=== PATIENT | female | born 1935 | race Asian ===

== ENCOUNTER 2016-09-26 19:57 | Emergency (ER) | payer MEDICARE, OTHER ==
[~2016-09-26 19:57] MED LIST: ALPR0.25 PO; ASCO500C PO; B COTAB3 PO; BIOT2500 PO; CYAN25003 PO; D32000CA PO; DICL1GEL TOP; FISH100020 PO; FURO20 PO; HYOS0.1251 PO; LYRI50CA2 PO; MECL25CH PO; MEMA28CA PO; PHEN100 PO; POTA-267 PO; REST0.05 OU; TAB-TAB PO; TACT325T; VIIB40TA PO; [UNRECOGNIZED DRUG - CODE] TOP
[2016-09-26] MEDS ORDERED: PROG100C PO (20:10)
[2016-09-26 20:11] VITALS: BP 112/63; PULSE 62; RESP 18; TEMP 98.9; O2SAT 91
--- NOTE | 2016-09-26 20:15 | PD ---
HPI . Head injury Chief Complaint: Fall Time Seen by Provider: 20:10 Travel History International Travel<30 days: No Contact w/Intl Traveler<30days: No History of Present Illness HPI detention patient with Alzheimer's who was sent to us for evaluation of injury sustained in a fall. She reportedly was bending over and fell over. There was no associated loss of consciousness. They state that her neurological status is the same now as it was prior to the incident. She is not on a blood thinner. PFSH Past Medical History Hx Anticoagulant Therapy: No ADHD: Yes Alzheimer's Disease: Yes Arthritis: Yes (HANDS) Asthma: No Blood Disorders: No Anxiety: Yes Depression: Yes Heart Rhythm Problems: Yes (bradycardia) Cancer: No Cardiovascular Problems: Yes High Cholesterol: No Chest Pain: No Congestive Heart Failure: No COPD: Yes Cerebrovascular Accident: No Dementia: Yes (Alzheimer's) Diabetes: No Diminished Hearing: No Deep Vein Thrombosis: Yes (PE x 2) Endocrine: No Gastrointestinal Disorders: Yes GERD: Yes Glaucoma: No Genitourinary: No Headaches: Yes Hepatitis: Yes (B) Hiatal Hernia: No Hypertension: No Immune Disorder: No Implanted Vascular Access Dvce: Yes Neurologic: Yes (alzheimer/dementia) Psychiatric: Yes Reproductive: No Respiratory: Yes Immunizations Current: Yes Migraines: Yes Seizures: Yes Sleep Apnea: Yes Thyroid Disease: No Ulcer: No Menopausal: Yes : 1 Para: 1 Past Surgical History Abdominal Surgery: Yes (hysterectomy) Body Medical Devices: vena cava filter 2012 Eye Surgery: Yes (CATARACT SURGERY 2008) Genitourinary Surgery: Yes (BOTOX IN BLADDER) Gynecologic Surgery: Yes Hysterectomy: Yes Mastectomy: Yes (BILATERAL-r/t nonmalignant deformities caused by leaking silicone) Neurologic Surgery: Yes (neck 2007, brain bleed) Oral Surgery: No Pacemaker: No Thoracic Surgery: Yes Other Surgery: Yes (IVC filter 02/08, Bilat masectomy 1995) Social History Alcohol Use: No Tobacco Use: No (Quit approx 15-20 yrs ago smoked cigs) Substance Use: No Allergies-Medications (Allergen,Severity, Reaction): Coded Allergies: Codeine (Verified Allergy, Unknown, 09/26/16) Fiorinal (Verified Allergy, Unknown, 09/26/16) Aspirin (Verified Adverse Reaction, Intermediate, stomach upset, 09/26/16) Reported Meds & Prescriptions Reported Meds & Active Scripts Active Reported Acyclovir Topical (Acyclovir) 5% Oint 1 Applic TOPICAL Q3HR Viibryd (Vilazodone) 40 Mg Tab 40 Mg PO DAILY Risperidone 1 Mg Tab 1 Mg PO Q12HR Potassium Chloride ER (Potassium Chloride) 20 Meq Tab 20 Meq PO BID Phenytoin Extended 200 Mg Cap 200 Mg PO BID Meclizine (Meclizine HCl) 12.5 Mg Tab 12.5 Mg PO TID PRN Gabapentin 400 Mg Cap 400 Cap PO HS Gabapentin 100 Mg Cap 200 Mg PO TID Furosemide 40 Mg Tab 40 Mg PO DAILY Duloxetine DR (Duloxetine HCl) 20 Mg Capdr 20 Mg PO DAILY Tyyqhdjbyn-Jqaqetxhcvfts-Ljnmzxjc 50-300-40 Mg Cap 1 Cap PO Q6HR PRN Do not exceed 6 capsules/day. B Complex (B-Complex Vitamins) 1 Cap 1 Cap PO DAILY Progesterone Micronized 100 Mg Cap 100 Mg PO DAILY Review of Systems ROS Limitations: Other: (dementia) Physical Exam Narrative GENERAL: Patient is lying on the stretcher with her eyes closed in no acute distress. She will open her eyes and look around but otherwise will not follow commands. SKIN: Warm and dry. HEAD: Normocephalic. She has a palpable contusion to the occiput of her head. EYES: Pupils equal and round. Extraocular movements are intact. ENT: No nasal bleeding or discharge. Mucous membranes pink and moist. NECK: Trachea midline. She is C-spine immobilized. CARDIOVASCULAR: Regular rate and rhythm. RESPIRATORY: No accessory muscle use. GASTROINTESTINAL: Abdomen soft, non-tender, nondistended. MUSCULOSKELETAL: No obvious deformities. No edema. NEUROLOGICAL: Awake and alert. No obvious cranial nerve deficits. Motor grossly within normal limits. Normal speech. PSYCHIATRIC: Appropriate mood and affect; insight and judgment normal. Data Data Last Documented VS Vital Signs Date Time Temp Pulse Resp B/P Pulse Ox O2 Delivery O2 Flow Rate FiO2 09/26/16 21:24 56 18 110/69 97 Nasal Cannula 2 09/26/16 20:[address] Brain W/O Iv Contrast(Rout) (09/26/16 20:10) Ct Cerv Spine W/O Contrast (09/26/16 20:10) MDM Medical Decision Making Medical Screen Exam Complete: Yes Emergency Medical Condition: Yes Differential Diagnosis My differential diagnosis of head trauma includes but is not limited to scalp contusion, concussion, intracerebral hemorrhage. Narrative Course This is a demented patient who presents for evaluation of an injury to her head. CT of her head and neck are negative for acute finding. Diagnosis Primary Impression: Scalp contusion Disposition: 01 DISCHARGE HOME Condition: Stable Yuridia Mcgee MD Sep 26, 2016 20:15
[2016-09-26] MEDS ORDERED: DULO1CAP PO (20:36)
[2016-09-26] MEDS ORDERED: MECL12.574 PO (20:36)
[2016-09-26] MEDS ORDERED: ACYC5OIN4 TOPICAL (20:36)
[2016-09-26] MEDS ORDERED: BUTA1CAP5 PO (20:36)
[2016-09-26] MEDS ORDERED: GABA100C4 PO (20:36)
[2016-09-26] MEDS ORDERED: POTA-163 PO (20:36)
[2016-09-26] MEDS ORDERED: FURO40TA PO (20:36)
[2016-09-26] MEDS ORDERED: VITACAP7 PO (20:36)
[2016-09-26] MEDS ORDERED: PHEN200C3 PO (20:36)
[2016-09-26] MEDS ORDERED: GABA400C5 PO (20:36)
[2016-09-26] MEDS ORDERED: RISP1TAB2 PO (20:36)
[2016-09-26] MEDS ORDERED: VIIB40TA PO (20:36)
[2016-09-26 21:24] VITALS: BP 110/69; PULSE 56; RESP 18; O2SAT 97
--- NOTE | 2016-09-26 21:58 | RADHPO ---
EXAM DATE/TIME: 09/26/2016 20:48 [facility] COMPARISON: CT CERVICAL SPINE W/O CONTRAST, April 18, 2015, 9:51. INDICATIONS : Trauma. Fall. RADIATION DOSE: 26.99 CTDIvol (mGy) MEDICAL HISTORY : Dementia. Congestive heart failure. SURGICAL HISTORY : Fusion, cervical. ENCOUNTER: Initial ACUITY: 1 day PAIN SCALE: 0/10 LOCATION: neck TECHNIQUE: Volumetric scanning of the cervical spine was performed. Multiplanar reconstructions in the sagittal, coronal and oblique axial planes were performed. Using automated exposure control and adjustment o f the mA and/or kV according to patient size, radiation dose was kept as low as reasonably achievable to obtain optimal diagnostic quality images. FINDINGS: Craniocervical and cervical vertebral body alignment remain intact. There is no evidence of acute fracture or traumatic listhesis. Postsurgical changes are seen in the lower cervical spine following anterior cervical fusion from C5- C7. Posterior elements are intact. There are no soft tissue abnormalities. CONCLUSION: Stable cervical spine without evidence of acute fracture or traumatic listhesis. Status post anterior cervical fusion from C5-C7. Dante Vilchis MD on September 26, 2016 at 21:54 Board Certified Radiologist. This report was verified electronically.
--- NOTE | 2016-09-26 22:00 | RADHPO ---
EXAM DATE/TIME: 09/26/2016 20:48 [facility] COMPARISON: CT BRAIN W/O CONTRAST, December 02, 2015, 12:55. INDICATIONS : Trauma. Fall. RADIATION DOSE: 56.66 CTDIvol (mGy) MEDICAL HISTORY : Congestive hearrt failure. Dementia. Brain injury. SURGICAL HISTORY : Fusion, cervical. Craniotomy. ENCOUNTER: Initial ACUITY: 1 day PAIN SCALE: 3/10 LOCATION: cranial TECHNIQUE: Multiple contiguous axial images were obtained of the head. Using automated exposure control and adj ustment of the mA and/or kV according to patient size, radiation dose was kept as low as reasonably a chievable to obtain optimal diagnostic quality images. FINDINGS: CEREBRUM: The ventricles are normal for age. No evidence of midline shift, mass lesion, hemorrhage or acute in farction. No extra-axial fluid collections are seen. POSTERIOR FOSSA: The cerebellum and brainstem are intact. The 4th ventricle is midline. The cerebellopontine angle i s unremarkable. EXTRACRANIAL: Chronic opacification of the left maxillary sinus is again noted. Air-fluid level is identified in th e left maxillary sinus. SKULL: The calvaria is intact. No evidence of skull fracture. CONCLUSION: Stable appearance of the brain without evidence of acute infarct, hemorrhage, mass or edema. Chronic opacification left maxillary sinus and small fluid level in the right maxillary sinus. No evidence of acute fracture. Dante Vilchis MD on September 26, 2016 at 21:56 Board Certified Radiologist. This report was verified electronically.
== END 2016-09-26 22:24 | disposition home or self-care (01) ==
LOC: PHED 19:57
DX: S00.03XA Contusion of scalp, initial encounter (principal); F02.80 Dementia in other diseases classified elsewhere, unspecified severity, without behavioral disturbance, psychotic disturbance, mood disturbance, and anxiety; G30.9 Alzheimer's disease, unspecified; W18.39XA Other fall on same level, initial encounter; Y93.89 Activity, other specified; Y92.129 Unspecified place in nursing home as the place of occurrence of the external cause; Y99.9 Unspecified external cause status
CPT/HCPCS: 70450; 72125

== ENCOUNTER 2016-10-02 05:54 | Emergency (ER) | payer MEDICARE, OTHER ==
[~2016-10-02] VITALS: Ht 167.6 cm; Wt 70.5 kg
[~2016-10-02 05:54] MED LIST changes: +ACYC5OIN4 TOPICAL; -ALPR0.25 PO; -ASCO500C PO; -B COTAB3 PO; -BIOT2500 PO; +BUTA1CAP5 PO; -CYAN25003 PO; -D32000CA PO; -DICL1GEL TOP; +DULO1CAP PO; -FISH100020 PO; -FURO20 PO; +FURO40TA PO; +GABA100C4 PO; +GABA400C5 PO; -HYOS0.1251 PO; -LYRI50CA2 PO; +MECL12.574 PO; -MECL25CH PO; -MEMA28CA PO; -PHEN100 PO; +PHEN200C3 PO; +POTA-163 PO; -POTA-267 PO; +PROG100C PO; -REST0.05 OU; +RISP1TAB2 PO; -TAB-TAB PO; -TACT325T; +VITACAP7 PO; -[UNRECOGNIZED DRUG - CODE] TOP
--- NOTE | 2016-10-02 06:01 | PD ---
HPI Chief Complaint: unwitnessed fall at senior living Time Seen by Provider: 05:55 Travel History International Travel<30 days: No Contact w/Intl Traveler<30days: No Traveled to known affect area: No History of Present Illness HPI The patient is an 81-year-old female that is in the Alzheimer's unit at [facility] who apparently suffered an unwitnessed fall some more around 5 AM this morning. She was found in bed because her put her into bed. Her states he saw her fall. The patient has no complaints. She may have some pain in her chest, she has fractured her ribs before. PFSH Past Medical History Hx Anticoagulant Therapy: No ADHD: Yes Alzheimer's Disease: Yes Arthritis: Yes (HANDS) Asthma: No Blood Disorders: No Anxiety: Yes Depression: Yes Heart Rhythm Problems: Yes (bradycardia) Cancer: No Cardiovascular Problems: Yes (chf) High Cholesterol: Yes Chest Pain: No Congestive Heart Failure: Yes COPD: Yes Cerebrovascular Accident: No Dementia: Yes (Alzheimer's) Diabetes: No Diminished Hearing: No Deep Vein Thrombosis: Yes (PE x 2) Endocrine: No Gastrointestinal Disorders: Yes GERD: Yes Glaucoma: No Genitourinary: No Headaches: Yes Hepatitis: Yes (B) Hiatal Hernia: No Hypertension: No Immune Disorder: No Implanted Vascular Access Dvce: Yes Neurologic: Yes (alzheimer/dementia) Psychiatric: Yes Reproductive: No Respiratory: Yes (chf) Immunizations Current: Yes Migraines: Yes Seizures: Yes Sleep Apnea: Yes Thyroid Disease: No Ulcer: No Menopausal: Yes : 1 Para: 1 Past Surgical History Abdominal Surgery: Yes (hysterectomy) Body Medical Devices: vena cava filter 2012 Eye Surgery: Yes (CATARACT SURGERY 2008) Genitourinary Surgery: Yes (BOTOX IN BLADDER) Gynecologic Surgery: Yes Hysterectomy: Yes Mastectomy: Yes (BILATERAL-r/t nonmalignant deformities caused by leaking silicone) Neurologic Surgery: Yes (neck 2007, brain bleed) Oral Surgery: No Pacemaker: No Thoracic Surgery: Yes Other Surgery: Yes (IVC filter 02/08, Bilat masectomy 1995) Social History Alcohol Use: No Tobacco Use: No (Quit approx 15-20 yrs ago smoked cigs) Substance Use: No Allergies-Medications (Allergen,Severity, Reaction): Coded Allergies: Codeine (Verified Allergy, Unknown, 10/02/16) Fiorinal (Verified Allergy, Unknown, 10/02/16) Aspirin (Verified Adverse Reaction, Intermediate, stomach upset, 10/02/16) Reported Meds & Prescriptions Reported Meds & Active Scripts Active Reported Acyclovir Topical (Acyclovir) 5% Oint 1 Applic TOPICAL Q3HR Viibryd (Vilazodone) 40 Mg Tab 40 Mg PO DAILY Risperidone 1 Mg Tab 1 Mg PO Q12HR Potassium Chloride ER (Potassium Chloride) 20 Meq Tab 20 Meq PO BID Phenytoin Extended 200 Mg Cap 200 Mg PO BID Meclizine (Meclizine HCl) 12.5 Mg Tab 12.5 Mg PO TID PRN Gabapentin 400 Mg Cap 400 Cap PO HS Gabapentin 100 Mg Cap 200 Mg PO TID Furosemide 40 Mg Tab 40 Mg PO DAILY Duloxetine DR (Duloxetine HCl) 20 Mg Capdr 20 Mg PO DAILY Bsflwaagkd-Bkmtafcqaazaz-Yadhxvst 50-300-40 Mg Cap 1 Cap PO Q6HR PRN Do not exceed 6 capsules/day. B Complex (B-Complex Vitamins) 1 Cap 1 Cap PO DAILY Progesterone Micronized 100 Mg Cap 100 Mg PO DAILY Review of Systems ROS Limitations: Poor Historian Physical Exam Exam Limitations: Poor Historian Narrative GENERAL: Well-nourished, well-developed patient who is disoriented and does not cooperate. Patient appears to be in no apparent distress. SKIN: Warm and dry. HEAD: Normocephalic. EYES: No scleral icterus. No injection or drainage. NECK: Supple, trachea midline. No JVD or lymphadenopathy. CARDIOVASCULAR: Regular rate and rhythm without murmurs, gallops, or rubs. RESPIRATORY: Breath sounds equal bilaterally. No accessory muscle use. Poor respiratory effort is present but lungs appear clear. There is no flail, no bony nor air crepitus. GASTROINTESTINAL: Abdomen soft, non-tender, nondistended. MUSCULOSKELETAL: No cyanosis, or edema. BACK: Nontender without obvious deformity. No CVA tenderness. Data Data Last Documented VS Vital Signs Date Time Temp Pulse Resp B/P Pulse Ox O2 Delivery O2 Flow Rate FiO2 10/02/16 06:08 76 18 96 Room Air 10/02/16 06:02 98.4 125/73 Orders Chest, Pa & Lat (10/02/16 05:55) Cath For Specimen (10/02/16 06:16) Urinalysis - C+S If Indicated (10/02/16 06:17) Alprazolam (Xanax) (10/02/16 07:00) Labs Laboratory Tests Test 10/02/16 06:20 Urine Collection Type CATH Urine Color YELLOW Urine Turbidity SLIGHT Urine pH 7.0 Urine Specific [place] 1.018 Urine Protein NEG mg/dL Urine Glucose (UA) NEG mg/dL Urine Ketones NEG mg/dL Urine Occult Blood NEG Urine Nitrite NEG Urine Bilirubin NEG Urine Leukocyte Esterase NEG Urine RBC 0-3 /hpf Urine Amorphous Sediment LARGE Microscopic Urinalysis Comment CATH-CULT NOT IND Urine Collection Time 0620 [facility] Medical Decision Making Medical Screen Exam Complete: Yes Emergency Medical Condition: Yes Medical Record Reviewed: Yes Interpretation(s) The urine shows slight turbidity but is otherwise normal and culture is not indicated. The chest x-ray shows no acute change and no evidence of trauma. Differential Diagnosis Urinary tract infection, pneumothorax, fracture ribs, chest wall contusion Narrative Course The is the only one who witnessed the fall. I discussed the patient with the and he thinks that she did hit her chest and that was her only complaint. Impression: Chest wall contusion Plan: The patient is very anxious and started crying after the family came in. The patient will be given Xanax 1 mg and return to the senior living. Diagnosis Primary Impression: Chest wall contusion Additional Instructions: The patient appears to have a chest wall contusion. There is no evidence of any significant trauma on the x-ray or clinical examination. She is anxious and was given 1 mg of Xanax. Med/Other Pt SpecificInfo: No Change to Meds Disposition: 01 DISCHARGE HOME Condition: Stable Marino Mejia MD Oct 02, 2016 06:01
[2016-10-02 06:02] VITALS: BP 125/73; PULSE 76; RESP 18; TEMP 98.4; O2SAT 96
[2016-10-02 06:30] LABS: BLOOD, URINE NEG (NEG); GLUCOSE,URINE NEG (NEG); KETONE, URINE NEG (NEG); NITRITE,URINE NEG (NEG)
[2016-10-02 06:31] LABS: METHOD OF COLLECTION CATH
[2016-10-02 06:32] LABS: URINE COLOR YELLOW (YELLW/STRAW)
[2016-10-02 06:37] LABS: COMMENT (UR) CATH-CULT NOT IND; CULTURE IF INDICATED CATH CULTURE NOT IND; RBC, URINE 0-3 /hpf (0-3)
[2016-10-02] MEDS ORDERED: ALPRAZolam 1 MG TAB PO ONE (07:00)
--- NOTE | 2016-10-02 07:00 | RADHPO ---
EXAM DATE/TIME: 10/02/2016 06:31 [facility] COMPARISON: CHEST SINGLE AP, July 30, 2015, 12:53. INDICATIONS : Chest pain from fall yesterday. MEDICAL HISTORY : Congestive heart failure. Dementia SURGICAL HISTORY : Fusion, cervical. ENCOUNTER: Initial ACUITY: 1 day PAIN SCORE: 7/10 LOCATION: Bilateral chest FINDINGS: PA and lateral views of the chest demonstrate mild bibasilar atelectatic changes. Heart size is borde rline prominent. There is tortuosity of the thoracic aorta with calcification in the arch. Anterior f ixation of the lower cervical spine. Osseous structures are intact. CONCLUSION: 1. Mild bibasilar atelectatic changes. 2. Compensated cardiomegaly. Artie Pabon MD on October 02, 2016 at 6:57 Board Certified Radiologist. This report was verified electronically.
[2016-10-02] MEDS ORDERED: ALPRAZolam 0.5 MG TAB PO SCH (07:15)
== END 2016-10-02 07:15 | disposition home or self-care (01) ==
LOC: PHED 05:54
DX: S20.219A Contusion of unspecified front wall of thorax, initial encounter (principal); W19.XXXA Unspecified fall, initial encounter; Y92.129 Unspecified place in nursing home as the place of occurrence of the external cause
CPT/HCPCS: 71020; 81001; 99284; P9612

== ENCOUNTER 2016-10-04 05:01 | Emergency (ER) | payer MEDICARE, OTHER ==
[~2016-10-04] VITALS: Ht 157.5 cm; Wt 63.6 kg
[2016-10-04 05:05] VITALS: PULSE 70; RESP 20
[2016-10-04] MEDS ORDERED: HALOPERIDOL LACTATE 5 MG/ML AMP IM ONE (05:45)
[2016-10-04] MEDS ORDERED: DULO1CAP PO (05:52)
[2016-10-04] MEDS ORDERED: BUTATAB6 PO (05:52)
[2016-10-04 06:05] VITALS: BP 144/80
--- NOTE | 2016-10-04 06:18 | RADRPT ---
EXAM DATE/TIME: 10/04/2016 05:50 [facility] COMPARISON: CHEST SINGLE AP, July 30, 2015, 12:53. INDICATIONS : Fall. MEDICAL HISTORY : None. SURGICAL HISTORY : None. ENCOUNTER: Initial ACUITY: 1 day PAIN SCORE: 0/10 LOCATION: Bilateral chest FINDINGS: A single view of the chest demonstrates the lungs to be symmetrically aerated with minimal bibasilar atelectatic changes. Heart size is prominent but well compensated. Minimally displaced fracture throu gh the lateral aspect of rib #5 the left. Anterior fixation of lower cervical spine. Osseous structur es appear to be otherwise intact. CONCLUSION: 1. Minimally displaced fracture through the lateral aspect of rib #5 on the left. 2. Compensated cardiomegaly. 3. Minimal bibasilar atelectatic changes. Artie Pabon MD on October 04, 2016 at 6:14 Board Certified Radiologist. This report was verified electronically.
--- NOTE | 2016-10-04 06:24 | PD ---
HPI Chief Complaint: Pain: Acute or Chronic Time Seen by Provider: 05:30 Travel History International Travel<30 days: No Contact w/Intl Traveler<30days: No Traveled to known affect area: No History of Present Illness HPI 81-year-old female [facility] patient with history of dementia multiple medical issues, presents to the ER today brought in from facility because apparently she had fallen out of bed, was complaining of right chest wall pain and left hip pains. However, on my examination, patient is fairly agitated and not willing to cooperate with exam and not willing to give me any further history. She appears to be moving all 4 extremities. Wants to sit up in bed. Modifying Factors: None Associated Signs & Symptoms: Fall from bed, left hip pain, right chest wall pain Risk Factors: Demented, elderly PFSH Past Medical History Hx Anticoagulant Therapy: No ADHD: Yes Alzheimer's Disease: Yes Arthritis: Yes (HANDS) Asthma: No Blood Disorders: No Anxiety: Yes Depression: Yes Heart Rhythm Problems: Yes (bradycardia) Cancer: No Cardiovascular Problems: Yes High Cholesterol: Yes Chest Pain: No Congestive Heart Failure: Yes COPD: Yes Cerebrovascular Accident: No Dementia: Yes (Alzheimer's) Diabetes: No Diminished Hearing: No Deep Vein Thrombosis: Yes (PE x 2) Endocrine: No Gastrointestinal Disorders: Yes GERD: Yes Glaucoma: No Genitourinary: No Headaches: Yes Hepatitis: Yes (B) Hiatal Hernia: No Hypertension: No Immune Disorder: No Implanted Vascular Access Dvce: Yes Medical other: Yes (ARTHRITIS REFLUX, BACK AND NECK PROBLEMS) Neurologic: Yes (alzheimer/dementia) Psychiatric: Yes Reproductive: No Respiratory: Yes Immunizations Current: Yes Migraines: Yes Seizures: Yes Sleep Apnea: Yes Thyroid Disease: No Ulcer: No Tetanus Vaccination: > 5 Years Menopausal: Yes : 1 Para: 1 Past Surgical History Abdominal Surgery: Yes (hysterectomy) Body Medical Devices: vena cava filter 2012 Eye Surgery: Yes (CATARACT SURGERY 2008) Genitourinary Surgery: Yes (BOTOX IN BLADDER) Gynecologic Surgery: Yes Hysterectomy: Yes Mastectomy: Yes (BILATERAL-r/t nonmalignant deformities caused by leaking silicone) Neurologic Surgery: Yes (neck 2007, brain bleed) Oral Surgery: No Pacemaker: No Thoracic Surgery: Yes Other Surgery: Yes (IVC filter 02/08, Bilat masectomy 1995) Social History Alcohol Use: No Tobacco Use: No (Quit approx 15-20 yrs ago smoked cigs) Substance Use: No Allergies-Medications (Allergen,Severity, Reaction): Coded Allergies: Codeine (Verified Allergy, Unknown, 10/02/16) Fiorinal (Verified Allergy, Unknown, 10/02/16) Aspirin (Verified Adverse Reaction, Intermediate, stomach upset, 10/02/16) Reported Meds & Prescriptions Reported Meds & Active Scripts Active Reported Duloxetine DR (Duloxetine HCl) 20 Mg Capdr 20 Mg PO BID Gioqxxaxvx-Ndoqwoyswioti-Hvpfdiul 50-325-40 Mg Tab 1 Tab PO Q6HR PRN Do not exceed 6 tablets/day. Acyclovir Topical (Acyclovir) 5% Oint 1 Applic TOPICAL Q3HR Viibryd (Vilazodone) 40 Mg Tab 40 Mg PO DAILY Risperidone 1 Mg Tab 1 Mg PO Q12HR Potassium Chloride ER (Potassium Chloride) 20 Meq Tab 20 Meq PO BID Phenytoin Extended 200 Mg Cap 200 Mg PO BID Meclizine (Meclizine HCl) 12.5 Mg Tab 12.5 Mg PO TID PRN Gabapentin 400 Mg Cap 400 Cap PO HS Gabapentin 100 Mg Cap 200 Mg PO TID Furosemide 40 Mg Tab 40 Mg PO DAILY B Complex (B-Complex Vitamins) 1 Cap 1 Cap PO DAILY Progesterone Micronized 100 Mg Cap 100 Mg PO DAILY Review of Systems ROS Limitations: Altered Mental Status Physical Exam Narrative GENERAL: Well-nourished, well-developed elderly female patient who is fairly agitated, not cooperative with exam, but appears to be moving all 4 extremities without issues. Alert, awake, not oriented. SKIN: Warm and dry. HEAD: Normocephalic. EYES: No scleral icterus. No injection or drainage. NECK: Supple, trachea midline. CARDIOVASCULAR: Regular rate and rhythm without murmurs, gallops, or rubs. RESPIRATORY: Breath sounds equal bilaterally. No accessory muscle use. GASTROINTESTINAL: Abdomen soft, non-tender, nondistended. Pelvis: Stable, does not appear to be tender on palpation although exam is limited by agitation. MUSCULOSKELETAL: No cyanosis, or edema. BACK: Nontender without obvious deformity. No CVA tenderness. Data Data Last Documented VS Vital Signs Date Time Temp Pulse Resp B/P Pulse Ox O2 Delivery O2 Flow Rate FiO2 10/04/16 06:05 144/80 10/04/16 05:05 70 20 Orders Chest, Single Ap (10/04/16 05:30) Pelvis, Ap Only (Routine) (10/04/16 05:30) Ct Brain W/O Iv Contrast(Rout) (10/04/16 05:32) Haloperidol Inj (Haldol Inj) (10/04/16 05:45) MDM Medical Decision Making Medical Screen Exam Complete: Yes Emergency Medical Condition: Yes Medical Record Reviewed: Yes Interpretation(s) Last 24 hours Impressions Pelvis X-Ray 10/04/16529 Signed Impressions: Service Date/Time: Tuesday, October 04, 2016 05:52 - CONCLUSION: 1. No obvious fracture on this single frontal projection of the pelvis. 2. Multiple injection granulomata projecting over the hips. Artie Pabon MD Chest X-Ray 10/04/16529 Signed Impressions: Service Date/Time: Tuesday, October 04, 2016 05:50 - CONCLUSION: 1. Minimally displaced fracture through the lateral aspect of rib #5 on the left. 2. Compensated cardiomegaly. 3. Minimal bibasilar atelectatic changes. Artie Pabon MD Differential Diagnosis Fall from bedcontusions versus fractures versus acute intracranial injuries Narrative Course Patient is fairly agitated in the ER, refusing exam. She is able to sit off and appears to be moving all 4 extremities. Her chest x-ray shows a fracture. Pelvic x-rays did not reveal any signs of acute fractures. Patient was given Haldol to help decrease her agitation. Patient's family is in the room. Physician Communication Physician Communication Case is signed out to Dr. Tidwell at 7 AM pending CAT scan to rule out acute intracranial injuries. Diagnosis Primary Impression: Fall Additional Impression: Closed rib fracture Condition: Stable Cee Farmer MD Oct 04, 2016 06:24
--- NOTE | 2016-10-04 06:25 | RADRPT ---
EXAM DATE/TIME: 10/04/2016 05:52 [facility] COMPARISON: CT ABDOMEN & PELVIS W/O CONTRAST, April 24, 2015, 8:18. INDICATIONS : Fall MEDICAL HISTORY : None. SURGICAL HISTORY : None. ENCOUNTER: Initial ACUITY: 1 day PAIN SCORE: 5/10 LOCATION: Bilateral pelvis FINDINGS: A single frontal view of the pelvis demonstrates no evidence of fracture. The bony pelvic ring is in tact. Bony mineralization is normal. Multiple rounded calcifications project over both hips. Prior C T confirms that these actually represent multiple injection granulomata in the subcutaneous tissues o f the buttocks. Surgical clips laterally in the pelvis may represent a prior tubal ligation CONCLUSION: 1. No obvious fracture on this single frontal projection of the pelvis. 2. Multiple injection granulomata projecting over the hips. Artie Pabon MD on October 04, 2016 at 6:19 Board Certified Radiologist. This report was verified electronically.
[2016-10-04 07:57] VITALS: BP 149/70; PULSE 65; RESP 16; O2SAT 100
--- NOTE | 2016-10-04 08:09 | RADRPT ---
EXAM DATE/TIME: 10/04/2016 08:02 [facility] COMPARISON: CT BRAIN W/O CONTRAST, September 26, 2016, 20:48. INDICATIONS : Trauma. Fall. RADIATION DOSE: 34.56 CTDIvol (mGy) MEDICAL HISTORY : Chronic obstructive pulmonary disease. Alzheimer's. Congestive heart failure. Seizures. Breast cance r. SURGICAL HISTORY : Hysterectomy. Mastectomy. ENCOUNTER: Initial ACUITY: 1 day PAIN SCALE: Non-responsive LOCATION: cranial TECHNIQUE: Multiple contiguous axial images were obtained of the head. Using automated exposure control and adj ustment of the mA and/or kV according to patient size, radiation dose was kept as low as reasonably a chievable to obtain optimal diagnostic quality images. FINDINGS: CEREBRUM: The ventricles are normal for age. No evidence of midline shift, mass lesion, hemorrhage or acute in farction. Calcifications are present in the basal ganglia. No extra-axial fluid collections are seen. POSTERIOR FOSSA: The cerebellum and brainstem are intact. The 4th ventricle is midline. The cerebellopontine angle i s unremarkable. EXTRACRANIAL: The visualized portion of the orbits is intact. There is mild mucosal thickening noted in several of the left ethmoidal air cells. SKULL: The calvaria is intact. No evidence of skull fracture. Bilateral deven holes are again noted. CONCLUSION: Negative acute trauma CT with no evidence of hemorrhage or mass effect. Bright Cardona MD on October 04, 2016 at 8:06 Board Certified Radiologist. This report was verified electronically.
[2016-10-04] MEDS ORDERED: HYDR-3516 PO (08:16)
--- NOTE | 2016-10-04 08:17 | PD ---
Physical Exam Date Seen by Provider: Oct 04, 2016 Time Seen by Provider: 08:14 Narrative 81-year-old female was sent from the longterm after having a fall. She was seen by the previous ER physician and x-rays were done which showed single rib fracture. Patient has history of dementia and was quite combative in the ER. She was given some Haldol by the previous ER physician as a tranquilizer. Please refer to her notes. I was supposed to follow-up on her CAT scan of her head that was done and if it was negative she could go back to the longterm. The CAT scan report is back and within normal limits. Patient will be discharged back to the longterm with pain medication prescription. Data Data Last Documented VS Vital Signs Date Time Temp Pulse Resp B/P Pulse Ox O2 Delivery O2 Flow Rate FiO2 10/04/16 09:30 62 20 132/66 99 10/04/16 08:23 Nasal Cannula 2 Orders Chest, Single Ap (10/04/16 05:30) Pelvis, Ap Only (Routine) (10/04/16 05:30) Ct Brain W/O Iv Contrast(Rout) (10/04/16 05:32) Haloperidol Inj (Haldol Inj) (10/04/16 05:45) MDM Supervised Visit with [facility]: No Diagnosis Primary Impression: Fall Qualified Code: W19.XXXA - Fall, initial encounter Additional Impressions: Closed rib fracture Qualified Code: S22.39XA - Closed fracture of one rib, unspecified laterality , initial encounter Dementia Qualified Code: F03.91 - Dementia with behavioral disturbance, unspecified dementia type Chest wall contusion Qualified Code: S20.219A - Chest wall contusion, unspecified laterality, initial encounter Referrals: Primary Care Physician Additional Instruction: Please follow-up with the primary care in a day or 2. If the pain medication as per the prescription direction. Return to the ER if the condition worsens or any other new concerns. Med/Other Pt SpecificInfo: Prescription(s) given Scripts Hydrocodone-Acetaminophen 5-325 mg Tab1 Tab PO Q6H PRN (PAIN) #12 TAB Ref 0 Prov:Paty Tidwell MD 10/04/16 Disposition: 01 DISCHARGE HOME Condition: Stable Paty Tidwell MD Oct 04, 2016 08:17
[2016-10-04 08:23] VITALS: BP 120/69; PULSE 62; RESP 18; O2SAT 100
[2016-10-04 09:30] VITALS: BP 132/66
== END 2016-10-04 10:07 | disposition home or self-care (01) ==
LOC: NEPE 05:01
DX: S22.32XA Fracture of one rib, left side, initial encounter for closed fracture (principal); S20.219A Contusion of unspecified front wall of thorax, initial encounter; I51.7 Cardiomegaly; G30.9 Alzheimer's disease, unspecified; I50.9 Heart failure, unspecified; W06.XXXA Fall from bed, initial encounter; Y92.122 Bedroom in nursing home as the place of occurrence of the external cause
CPT/HCPCS: 70450; 71010; 72170; 96372; 99284; J1630